=== PATIENT | male | born 1995 ===

== ENCOUNTER 2022-03-15 20:42 | Emergency (ER) | payer SELFPAY ==
[2022-03-16 00:18] VITALS: BP 122/80
== END 2022-03-16 04:10 | disposition left against medical advice (07) ==
LOC: ED 20:42
DX: Z00.00 Encounter for general adult medical examination without abnormal findings (principal); Z53.21 Procedure and treatment not carried out due to patient leaving prior to being seen by health care provider

== ENCOUNTER 2022-03-16 21:03 | Emergency (ER) | payer SELFPAY ==
[2022-03-17 04:27] VITALS: BP 120/67
== END 2022-03-20 09:32 | disposition left against medical advice (07) ==
LOC: ED 21:03
DX: Z00.00 Encounter for general adult medical examination without abnormal findings (principal); Z53.21 Procedure and treatment not carried out due to patient leaving prior to being seen by health care provider